=== PATIENT | female | born 1965 | race Two or more races ===

== ENCOUNTER → 2017-01-20 | Outpatient (CLI) | payer OTHER ==
--- NOTE | ~2017-01-20 | US98 ---
[facility] A Service of [facility] RADIOLOGY TEXT RESULTS PATIENT: LOGAN ROBERTS LOCATION: [facility] : [birth year] UNIT #: [id number] AGE: [address]: LEXIE WRIGHT APRN SEX: F ORDER DR: [id number] [facility] [address] [place], [place] [address] [id number] O MR#: [id number] Acc #: [id number] NAME: LOGAN ROBERTS : 1965 SEX: F STUDY DATE/TIME: 01/20/2017 14:45 UNIT: [facility] ROOM: STUDY DESCRIPTION: US Pelvic Non-OB Complete Attending Physician: Lexie Wright Ordering Physician: Aliya Wright M.D. Primary Care Physician: Kashmir Alfonso M.D. MEDICAL IMAGING REPORT This report is preliminary unless electronic signature is present EXAM Pelvic ultrasound, 01/20/2017 CLINICAL HISTORY Heavy menstrual period left lower quadrant pelvic pain for 1 year. G1, P1. Last menstrual period 01/02/2017. COMPARISON None available. FINDINGS The uterus is anteverted. The uterus is enlarged measuring 17 cm x 10 cm x 9.5 cm. Multiple uterine fibroids are noted throughout the enlarged uterus. The endometrial stripe is homogenous measuring up to 9 mm. Several uterine fibroids are noted measuring up to 5.5 cm. The fibroids result in some attenuation artifact and obscure portions of the uterus. The right ovary measures approximately 8.3 cm x 2.5 cm x 6.5 cm. There are several cysts within the right ovary measuring up to 4.5 cm. The left ovary is not clearly identified. IMPRESSION 1. The enlarged uterus with fibroids obscures portions of the uterus as well as distorts evaluation of the adnexa. 2. There is a 4.5 cm right ovarian cyst. 3. The left ovary is not visualized. 4. Given the enlargement of the uterus and limited evaluation, the patient may benefit from a pelvic MRI (with and without contrast) to fully assess the pelvis and adnexa. [facility] A Service of [facility] & [facility] RADIOLOGY TEXT RESULTS PATIENT: LOGAN ROBERTS LOCATION: [facility] : [birth year] UNIT #: [id number] AGE: [address]: LEXIE WRIGHT APRN SEX: F ORDER DR: Dictated by... Tu Ramos M.D. THIS IS AN ELECTRONICALLY VERIFIED REPORT Tu Ramos M.D. at 01/21/2017 12:12 PM CHE[place]/kymberly TD: 01/21/2017 01:15 JOB #: [id number] MEDICAL IMAGING REPORT COPY
== END | disposition home or self-care (01) ==
LOC: CWCC 14:28
DX: R10.2 Pelvic and perineal pain (principal); D25.9 Leiomyoma of uterus, unspecified; N83.201 Unspecified ovarian cyst, right side; N85.2 Hypertrophy of uterus
CPT/HCPCS: 76830; 76856

== ENCOUNTER 2017-03-24 23:30 | Emergency (ER) | payer OTHER ==
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
[2017-03-25 00:54] LABS: BASOPHIL# 0.1 X10e3 (0-0.3); BASOPHIL% 0.8 % (0-2.5); EOSINOPHIL# 0.5 X10e3 (0-0.7); EOSINOPHIL% 4.9 % (0.0-7.0); HEMATOCRIT 40.4 % (35.0-45.0); HEMOGLOBIN 13.4 gm/dL (12.0-16.0); LYMPHOCYTE# 1.8 X10e3 (1.0-3.5); LYMPHOCYTE% 19.4 % (17.0-45.0); MEAN CELL VOLUME 82.2 FL (83-96); MEAN CORPUSCULAR HEMOGLOBIN 27.2 PG (28-34); MEAN CORPUSCULAR HGB CONC 33.1 g/dL (30-36); MEAN PLATELET VOLUME 8.8 FL (6.5-11.5); MONOCYTE# 0.6 X10e3 (0-1.0); MONOCYTE% 6.1 % (3.0-12.0); NEUTROPHIL# 6.4 X10e3 (1.5-7.1); NEUTROPHIL% 68.8 % (40-75); PLATELET COUNT 275 X10e3 (140-420); RED BLOOD COUNT 4.92 X10e (3.90-5.30); RED CELL DISTRIBUTION WIDTH 15.1 % (11.0-15.5); WHITE BLOOD COUNT 9.3 X10e3 (4.0-10.5)
[2017-03-25 00:57] LABS: DIFF IND NO
[2017-03-25 01:18] LABS: BUN/CREATININE RATIO 24.28; CREATININE SERUM 0.7 mg/dL (0.6-1.4); GLOM FILT RATE Estimated 101.7 mL/min (>60); POTASSIUM 4.2 mmol/L (3.5-5.1)
[2017-03-25 02:26] LABS: URINE SOURCE CLEAN CATCH
[2017-03-25 02:34] LABS: URINE APPEARANCE CLEAR; URINE BILIRUBIN NEG (NEG); URINE BLOOD NEG (NEG); URINE COLOR DK YELLOW; URINE GLUCOSE NEG (NEG); URINE KETONE NEG (NEG); URINE LEUKOCYTE ESTERASE NEG (NEG); URINE NITRATE NEG (NEG); URINE PH 6.5 (5-8); URINE PROTEIN NEG (NEG)
[2017-03-25 02:36] LABS: CULTURE INDICATED? NO
== END 2017-03-25 05:00 | disposition home or self-care (01) ==
LOC: CED 23:30
PROVIDERS: Emergency Medicine
DX: S30.1XXA Contusion of abdominal wall, initial encounter (principal); S80.01XA Contusion of right knee, initial encounter; V49.50XA Passenger injured in collision with unspecified motor vehicles in traffic accident, initial encounter
CPT/HCPCS: 36415; 73562; 74177; 80048; 81003; 84703; 85025; 96374; 99284; J2270; Q9967

== ENCOUNTER → 2017-06-03 | Outpatient (CLI) | payer OTHER ==
--- NOTE | ~2017-06-03 | MY24 ---
[facility] A Service of [facility] RADIOLOGY TEXT RESULTS PATIENT: LOGAN ROBERTS LOCATION: [facility] : 69 UNIT #: [id number] AGE: [address]: AURORA WRIGHT APRN SEX: F ORDER DR: [id number] [facility] [address] [place], [place] [address] [id number] O MR#: [id number] Acc #: [id number] NAME: LOGAN ROBERTS : 1965 SEX: F STUDY DATE/TIME: 06/03/2017 12:34 UNIT: [facility] ROOM: STUDY DESCRIPTION: [facility] W/ CAD UNI LT Attending Physician: Aliya Wright M.D. Referring Physician: Kashmir Alfonso M.D. Ordering Physician: Aliya Wright M.D. Primary Care Physician: Kashmir Alfonso M.D. MEDICAL IMAGING REPORT This report is preliminary unless electronic signature is present EXAMINATION Left breast digital diagnostic mammogram with CAD DATE 06/03/2017 HISTORY Follow up fibronodular densities in left breast. Patient has no current complaints. COMPARISON Mild screening mammogram 10/15/2016. Left breast digital diagnostic mammogram and ultrasound 11/11/2016. FINDINGS CC and MLO and true ML views were obtained of the left breast utilizing digital technique and reviewed with an FDA-approved CAD device. Heterogeneously dense fibroglandular tissue is seen in the left breast. It is predominately manifest as 2 islands of dense tissue in the medial hemisphere. The dominant of these measures slightly over 6 mm, 6 cm in length, and the smaller most posterior component measures roughly 4 cm. Upon spot compression in the CC and MLO planes, the densities persist, but do not appear frankly mass-like. Their overall morphology, size and configuration appears stable since 10/15/2016 and 11/11/2016. No associated architectural distortion or microcalcification is identified. No new nodules are evident. There is no abnormal skin thickening or nipple retraction. IMPRESSION 1. Benign findings in the left breast. Features of benign islands of fibroglandular tissue in the medial hemisphere of the left breast appears stable compared to the 10/15/2016 examination. These also STS. [facility] A Service of [facility] RADIOLOGY TEXT RESULTS PATIENT: LOGAN ROBERTS LOCATION: [facility] : 69 UNIT #: [id number] AGE: [address]: AURORA WRIGHT APRN SEX: F ORDER DR: demonstrated benign features on the previous diagnostic mammogram and ultrasound study. It is advised the patient return for a routine bilateral screening mammogram cycle due in October of 2017. Certainly, if the patient develops any new or suspicious palpable abnormalities, repeat additional imaging can be performed prior to that time. 2. The findings and recommendations were discussed in great detail with the patient today in the radiology department via an continuous wave operator. She verbalized understanding. Patient's over the age of 40 are entered into a reminder system with target due date for the next mammogram. BIRADS: 2 Benign findings in the left breast. Dictated by... Angie eMndoza M.D. THIS IS AN ELECTRONICALLY VERIFIED REPORT Angie Mendoza M.D. at 06/05/2017 9:33 PM Janett TD: 06/03/2017 14:18 JOB #: [id number] MEDICAL IMAGING REPORT Page 1 of 1 COPY
== END | disposition home or self-care (01) ==
LOC: CMAM 05-22 08:00
DX: N64.89 Other specified disorders of breast (principal)
CPT/HCPCS: G0206